=== PATIENT | female | born 1995 | race Caucasian/White ===

== ENCOUNTER 2016-04-07 17:00 | Emergency (ER) | payer OTHER ==
[2016-04-07 17:18] VITALS: RESP 16
--- NOTE | 2016-04-07 17:41 | EDPHY ---
H & P Time Seen by Provider: 04/07/16 17:24 HPI/ROS: CHIEF COMPLAINT: Abdominal pain, back pain HISTORY OF PRESENT ILLNESS: 20-year-old female presents to the emergency department by private vehicle complaining of right lower quadrant abdominal pain and low back pain for last 2 days the patient states that her pain was initially in her low back and now has radiated into her right lower quadrant. She was seen at [facility] [employer] today and had an ultrasound that was concerning. Last menstrual period was 1 week ago and she denies . She has an IUD in place. She denies nausea or vomiting. She denies chest pain or difficulty breathing. Denies dysuria, urgency or frequency with urination. No fevers or chills. No reported trauma. REVIEW OF SYSTEMS: Constitutional: No fever, no chills. Eyes: No double or blurry vision. ENT: No sore throat. Respiratory: No cough, no shortness of breath. Cardiac: No chest pain. Gastrointestinal: Abdominal pain as above. No vomiting or diarrhea. Genitourinary: No dysuria. Musculoskeletal: low back pain. No neck pain. Skin: No rashes. Neurological: No headache. Past Medical/Surgical History: Appendectomy Social History: [employer] student Smoking Status: Never smoked Physical Exam: General Appearance: Alert, no distress. Afebrile. No apparent distress. Eyes: Pupils equal and round. Extraocular motions are all intact. ENT: Mouth: Mucous membranes moist. Respiratory: No wheezing, rhonchi, or rales, lungs are clear to auscultation. Cardiovascular: Regular rate and rhythm. Gastrointestinal: Abdomen is soft. She has mild tenderness with palpation in the right lower quadrant and right groin area. There is no rebound, guarding or masses noted. She has no CVA tenderness bilaterally. Neurological: Alert and oriented x 3, cranial nerves II through XII grossly intact Skin: Warm and dry, no rashes. Musculoskeletal: Nontender to palpate along the cervical, thoracic or lumbar spine. Neck is supple. Extremities: Full range of motion and no peripheral edema. Psychiatric: Patient is oriented X 3, there is no agitation. Constitutional: Initial Vital Signs Temperature (C) 36.8 C 04/07/16 17:00 Heart Rate 109 H 04/07/16 17:00 Respiratory Rate 16 04/07/16 17:00 Blood Pressure 103/67 04/07/16 17:00 O2 Sat (%) 92 04/07/16 17:00 O2 Delivery Mode Room Air Allergies/Adverse Reactions: nickel Allergy (Verified 02/01/15 22:25) Home Medications: Medication Instructions Recorded Famotidine [Pepcid] 40 mg PO HS #30 tablet 02/02/15 Adderall 10 MG (*) 04/07/16 Zoloft 100mg (*) 04/07/16 oxyCODONE/APAP 5/325 [Percocet 1 - 2 tab PO Q4-6PRN PRN #15 tab 04/07/16 5/325] Medical Decision Making - Diagnostics Imaging: Pelvic ultrasound reveals numerous follicles bilateral ovaries. No evidence of ovarian cyst. This was reported to me by Dr. Yohannes Bull. ED Course/Re-evaluation: 20-year-old female presents by private vehicle from [facility] with abdominal pain and back pain. Initially the patient was given IV fentanyl for her discomfort. Pelvic ultrasound reveals multiple follicles bilateral ovaries. No evidence of ovarian torsion. No free fluid in the pelvis. She has had a previous appendectomy. Laboratory studies reveal normal CBC and chemistries. Urinalysis reveals no signs of infection. Patient was given Toradol 30 mg IV and was feeling much better. Patient would like to be discharged home. She will return to the emergency department if she develops recurring abdominal pain, vomiting, or if she feels worse in any way. Differential Diagnosis: Including but not limited to urinary tract infection, ovarian cyst, ovarian torsion, pyelonephritis, kidney stone, IUD displacement - Data Points Laboratory Results: Laboratory Results 04/07/16 17:24 04/07/16 17:24 04/07/16 04/07/16 20:05 17:24 WBC 10.14 H 10^3/uL (3.80-9.50) RBC 4.73 10^6/uL (4.18-5.33) Hgb 14.1 g/dL (12.6-16.3) Hct 42.7 % (38.0-47.0) MCV 90.3 fL (81.5-99.8) MCH 29.8 pg (27.9-34.1) MCHC 33.0 g/dL (32.4-36.7) RDW 13.0 % (11.5-15.2) Plt Count 358 10^3/uL (150-400) MPV 8.7 fL (8.7-11.7) Neut % (Auto) 71.0 % (39.3-74.2) Lymph % (Auto) 21.9 % (15.0-45.0) [place] % (Auto) 4.5 % (4.5-13.0) Eos % (Auto) 1.0 % (0.6-7.6) Baso % (Auto) 0.8 % (0.3-1.7) Nucleat RBC Rel Count 0.0 % (0.0-0.2) Absolute Neuts (auto) 7.20 H 10^3/uL (1.70-6.50) Absolute Lymphs (auto) 2.22 10^3/uL (1.00-3.00) Absolute Monos (auto) 0.46 10^3/uL (0.30-0.80) Absolute Eos (auto) 0.10 10^3/uL (0.03-0.40) Absolute Basos (auto) 0.08 10^3/uL (0.02-0.10) Absolute Nucleated RBC 0.00 10^3/uL (0-0.01) Immature Gran % 0.8 % (0.0-1.1) Immature Gran # 0.08 10^3/uL (0.00-0.10) Sodium 143 mEq/L (134-144) Potassium 4.3 mEq/L (3.5-5.2) Chloride 106 mEq/L (97-110) Carbon Dioxide 26 mEq/l (22-31) Anion Gap 11 mEq/L (8-16) BUN 12 mg/dL (7-23) Creatinine 1.0 mg/dL (0.6-1.0) Estimated GFR > 60 Glucose 78 mg/dL (70-100) Calcium 9.1 mg/dL (8.5-10.4) Beta HCG, Qual NEGATIVE Urine Color YELLOW Urine Appearance CLEAR Urine pH 5.0 (5.0-7.5) Ur Specific [place] 1.028 (1.002-1.030) Urine Protein NEGATIVE (NEGATIVE) Urine Ketones NEGATIVE (NEGATIVE) Urine Blood NEGATIVE (NEGATIVE) Urine Nitrate NEGATIVE (NEGATIVE) Urine Bilirubin NEGATIVE (NEGATIVE) Urine Urobilinogen NEGATIVE EU (0.2-1.0) Ur Leukocyte Esterase NEGATIVE (NEGATIVE) Urine RBC 1-3 /hpf (0-3) Urine WBC 1-3 /hpf (0-3) Ur Epithelial Cells TRACE /lpf (NONE-1+) Urine Bacteria TRACE H /hpf (NONE SEEN) Urine Mucus TRACE /lpf (NONE-1+) Urine Glucose NEGATIVE (NEGATIVE) Medications Given: Discontinued Medications Fentanyl (Sublimaze) 50 mcg IVP EDNOW ONE Stop: 04/07/16 17:43 Last Admin: 04/07/16 18:16 Dose: 50 mcg Sodium Chloride (Ns) 1,000 mls @ 0 mls/hr IV ONCE ONE PRN Reason: Wide Open Stop: 04/07/16 19:14 Last Admin: 04/07/16 19:17 Dose: 1,000 mls Ketorolac Tromethamine (Toradol) 30 mg IVP EDNOW ONE Stop: 04/07/16 19:21 Last Admin: 04/07/16 19:30 Dose: 30 mg Ondansetron HCl (Zofran) 4 mg IVP EDNOW ONE Stop: 04/07/16 17:43 Last Admin: 04/07/16 18:16 Dose: 4 mg Oxycodone/Acetaminophen (Percocet 5/325mg Prepack#4) 1 btl TAKEHOME EDNOW ONE Stop: 04/07/16 20:35 Last Admin: 04/07/16 21:00 Dose: 1 btl Departure - Departure Disposition: Home, Routine, Self-Care Clinical Impression: Abdominal pain Qualifiers: Abdominal location: right lower quadrant Qualifier Code: (R10.31) Right lower quadrant pain Condition: Good Instructions: Acute Abdominal Pain (ED), Ovarian Cyst (ED) Additional Instructions: Abdominal Pain: Return to the Emergency Department immediately for increasing pain, fever, vomiting, or if not completely better in 8-12 hours. Ibuprofen 600 mg every 8 hours as needed for pain. Percocet for severe pain as directed to help you sleep. Referrals: Ana M Benson MD [Medical Doctor] - 2-3 days, call for appt. (OBGYN on- call) Prescriptions: oxyCODONE/APAP 5/325 [Percocet 5/325] 1 - 2 tab PO Q4-6PRN PRN #15 tab PRN Reason: For Moderate To Severe Pain
[2016-04-07] MEDS ORDERED: fentaNYL 100 MCG/2 ML INJ IVP ONE (17:42)
[2016-04-07] MEDS ORDERED: ONDANSETRON 4 MG/2 ML VIAL IVP ONE (17:42)
[2016-04-07 17:48] LABS: % IMMATURE GRANULYOCYTES 0.8 % (0.0-1.1); ABSOLUTE IMMATURE GRANULOCYTES 0.08 10^3/uL (0.00-0.10); ADD DIFF? NO; ADD MORPH? NO; ADD SCAN? NO; ATYPICAL LYMPHOCYTE FLAG 10 (0-99); FRAGMENT RBC FLAG 0 (0-99); HEMATOCRIT 42.7 % (38.0-47.0); HEMOGLOBIN 14.1 g/dL (12.6-16.3); LEFT SHIFT FLG 0 (0-99); LIPEMIA HEMOLYSIS FLAG 80 (0-99); MEAN CELL HEMOGLOBIN 29.8 pg (27.9-34.1); MEAN CELL VOLUME 90.3 fL (81.5-99.8); MEAN PLATELET VOLUME 8.7 fL (8.7-11.7); PLATELET CLUMPS FLAG 0 (0-99); PLATELET COUNT 358 10^3/uL (150-400); RED BLOOD CELL COUNT 4.73 10^6/uL (4.18-5.33)
[2016-04-07 18:07] LABS: ANION GAP 11 mEq/L (8-16); CALCIUM 9.1 mg/dL (8.5-10.4); CARBON DIOXIDE 26 mEq/l (22-31); CHLORIDE 106 mEq/L (97-110); GLOMERULAR FILTRATION RATE > 60; GLUCOSE 78 mg/dL (70-100); POTASSIUM 4.3 mEq/L (3.5-5.2); SODIUM 143 mEq/L (134-144)
--- NOTE | 2016-04-07 18:44 | US ---
Ultrasound Pelvis Complete (Transabdominal and Endovaginal with duplex Doppler analysis) History: Right-sided pain, evaluate for possible ovarian cyst, IUD placed in February. LMP: Findings: Transabdominal and endovaginal ultrasound images were obtained. Endovaginal images obtaine d for better evaluation of the uterine myometrium and adnexa. Duplex doppler is used to evaluate the ovarian bloodflow. The uterus is anteverted and normal in size. No masses are present. The uterus measures 7 x 4 x 3.3 c m. The endometrial measures 2.1 mm in thickness. The IUD is in normal position within the central end ometrium. The ovaries are normal in size. The right ovary measures 3.7 x 2.3 x 2.2 cm. The left ovary measures 4.2 x 1.8 x 1.8 cm. There are multiple small follicles in each ovary. No adnexal masses. Th ere is only a trace of free fluid in the pelvis. Color and pulsed duplex doppler flow is identified in both ovaries . Resistive index i n the right ovary = 0.58 and in the left ovary 0.55. Impression: 1. No source for pelvic pain identified. 2. Possible evidence of polycystic ovarian disease. Is also discussed with Dr. Betty Queen.
[2016-04-07] MEDS ORDERED: NS 1,000 ML IV ONE (19:13)
[2016-04-07] MEDS ORDERED: KETOROLAC 30 MG/1 ML SDV IVP ONE (19:20)
[2016-04-07 20:16] LABS: COLOR YELLOW; LEUKOCYTE ESTERASE,URINE NEGATIVE (NEGATIVE); NITRITE,URINE NEGATIVE (NEGATIVE)
[2016-04-07 20:18] LABS: BACTERIA TRACE /hpf (NONE SEEN); MUCUS TRACE /lpf (NONE-1+)
[2016-04-07] MEDS ORDERED: OXYCODONE/APAP 5/325MG PREPACK#4 BTL TAKEHOME ONE (20:34)
[2016-04-07 21:05] VITALS: BP 94/52; PULSE 68; TEMP 98.1; O2SAT 98
== END 2016-04-07 21:05 | disposition home or self-care (01) ==
DX: R10.31 Right lower quadrant pain (principal); Z90.49 Acquired absence of other specified parts of digestive tract
CPT/HCPCS: 96374; J1885; J2405; J3010